=== PATIENT | female | born 1960 | race Caucasian/White ===

== ENCOUNTER 2016-11-18 19:47 | Inpatient (IN) | payer OTHER ==
[2016-11-18] MEDS ORDERED: IOPAMIDOL 370 (76%) 100 ML VIAL IV ONE (19:48)
[2016-11-18] MEDS ORDERED: LACTATED RINGERS 1,000 ML ONE (20:20)
[2016-11-18 20:32] LABS: ABSOLUTE NEUTROPHIL COUNT 7.4 K/mm3 (1.8-7.7); BASO % 0.3 % (0.2-1.0); EOS # 0.3 (0.0-0.5); EOS % 2.8 % (0.9-2.9); HEMATOCRIT 42.4 % (37.0-47.0); IMM NEUT # 0.1 K/mm3 (0-0.2); IMM NEUT% 0.7 % (0-1); LYMPH # 2.1 (1.0-4.8); LYMPH % 19.9 % (15-45); MEAN CELL VOLUME 91.8 fl (81.0-99.0); MEAN CORPUSCULAR HEMOGLOBIN 30.3 pg (27.0-31.0); MEAN PLATELET VOLUME 10.1 fl (7.4-10.4); MONO # 0.8 (0.0-0.8); MONO % 7.6 % (4-12); NEUT % 68.7 % (43-75); PLATELET COUNT 318 K/mm3 (130-400); RED CELL DISTRIBUTION WIDTH 12.6 % (11.5-14.5)
[2016-11-18] MEDS ORDERED: DEXAMETHASONE SOD PHOS 10 MG/1 ML VIAL ONE (20:35)
[2016-11-18] MEDS ORDERED: ALBUTEROL/IPRATROPIUM 2.5/0.5 MG 3 ML/EACH DOSE ONE (20:36)
[2016-11-18 20:46] LABS: SPECIFIC GRAVITY 1.025 (1.001-1.030); URINE BILIRUBIN NEGATIVE (NEGATIVE); URINE BLOOD NEGATIVE (NEGATIVE); URINE GLUCOSE (UA) NEGATIVE (NEGATIVE); URINE LEUKOCYTE ESTERASE NEGATIVE (NEGATIVE); URINE NITRITE NEGATIVE (NEGATIVE); URINE PROTEIN TRACE (NEGATIVE)
[2016-11-18 20:47] LABS: ALB/GLOB RATIO 1.3 (>1.0); ALBUMIN 4.1 gm/dL (3.5-5.7); CALCIUM 9.6 mg/dL (8.6-10.3)
[2016-11-18 20:48] LABS: URINE APPEARANCE CLEAR; URINE COLOR DARK YELLOW; URINE UROBILINOGEN 4 mg/dL (0-1 mg/dl)
[2016-11-18 20:56] LABS: TROPONIN I < 0.01 ng/ml (0.0-0.06)
[2016-11-18 20:59] LABS: CKMB ISOENZYME 2.7 ng/ml (0.6-6.3)
--- NOTE | 2016-11-18 21:22 | CT ---
Name: GIULIANA MUIR Exam: CT Angiogram of the chest with contrast Comparison: None Clinical History:Increasing lethargy and weakness. Recent diagnosis of URI Procedure: Helical CT using multidetector technique was applied to the chest during rapid intravenous administration of 80 cc Isovue-370. MIP reconstructions were obtained on the CT scanner. Automated dose reduction technique was used to minimize patient radiation dose. Findings: CT angiogram of the chest (contrast enhanced): Heart is nonenlarged. There is no pericardial effusion. Aorta is normal caliber and there is a normal 3 great vessel arrangement. Injection was made via the right. Limited views of the thyroid gland are normal. There is no suspicious axillary or mediastinal adenopathy. There is a small amount of hilar lymph tissue bilaterally. The large airways are clear. There is no pulmonary embolus. There is mild infiltrate within the lung bases bilaterally. The densest consolidation is in the middle lobe. There is no dominant mass, pleural effusion or pneumothorax. Multilevel degenerative disease of the thoracic spine is present. There is a partially imaged 5 cm duodenal diverticulum. Other structures below the diaphragm included on this exam are within normal limits. Impression: 1. No pulmonary embolus 2. Mild bibasilar pneumonia Note:The above report was uploaded to [facility]'s electronic medical records system at 2118 hours.
[2016-11-18] MEDS ORDERED: ALBUTEROL SULFATE 5MG/ML INHALANT 20 ML BOT ONE (21:38)
[2016-11-18] MEDS ORDERED: IPRATROPIUM BROMIDE 0.5 MG/2.5 ML DOSE ONE (21:38)
[2016-11-18] MEDS ORDERED: SODIUM CL FOR INHALATION 3 ML DOSE ONE (21:38)
[2016-11-19] MEDS ORDERED: ALBUTEROL NEB 2.5 MG/3 ML VIAL.NEB NEB PRN (00:21)
[2016-11-19] MEDS ORDERED: BLISTEX LIPSTICK 1 EACH TP PRN (00:36)
[2016-11-19] MEDS ORDERED: BISACODYL 10 MG SUP PR PRN (00:36)
[2016-11-19] MEDS ORDERED: BISACODYL 5 MG TABLET.EC PO PRN (00:36)
[2016-11-19] MEDS ORDERED: MAGNESIUM HYDROXIDE 30 ML UDCUP PO PRN (00:36)
[2016-11-19] MEDS ORDERED: MENTHOL/CETYLPYRD 1 EACH LOZENGE PO PRN (00:36)
[2016-11-19] MEDS ORDERED: SODIUM CHLORIDE 0.9% 100 ML IV PRN (00:36)
[2016-11-19] MEDS ORDERED: GUAIFENESIN/CODEINE 100/10 MG (5 ML UDCUP) PO PRN (00:44)
[2016-11-19] MEDS ORDERED: NICOTINE POLACRILEX 2 MG LOZENGE PO PRN (00:55)
[2016-11-19] MEDS ORDERED: NICOTINE 14 MG PATCH 1 EACH TD PRN (00:55)
[2016-11-19 01:16] VITALS: BMI 38.9
--- NOTE | 2016-11-19 07:31 | HP ---
GIULIANA DUPONT [id number] : 12/06/1950 DATE OF ADMISSION: November 18, 2016 IDENTIFICATION: Ms. Doan is a 55-year-old followed by Dr. Areli Godoy. CHIEF COMPLAINT: Dyspnea and cough. HISTORY OF PRESENT ILLNESS: Patient reports a two-week history of respiratory symptoms getting worse with cough, dyspnea, and congestion. She went to urgent care on November 17, 2016, where she was given nebulizer treatment and prescribed levofloxacin as well as Brio Ellipta and albuterol. She was given an intramuscular injection of ceftriaxone. On November 18, 2016, she used all these medications but symptoms seemed to be getting worse so late in the evening she came to the [facility] Emergency Room. She was again treated with nebulizer treatment, given a dose of intravenous solumedrol. She had CT scan demonstrating bilateral pneumonia. This was not considered a treatment failure as she had only just started on antibiotics, but she was falling asleep and becoming hypoxemic in the emergency department and stated that her CPAP machine at home was not working properly, and she was therefore referred to the hospitalist service rather than discharged. REVIEW OF SYSTEMS: HEENT: She does report headache and earache. RESPIRATORY: Cough and dyspnea, and yellow sputum. CARDIAC: No chest pain or palpitations. GASTROINTESTINAL: No nausea, vomiting, or dyspepsia. No diarrhea, constipation, hematochezia or melena. GENITOURINARY: No dysuria or urgency. MUSCULOSKELETAL: Chronic low back pain and left knee pain. CONSTITUTIONAL: She has had chills. No documented fever. PAST MEDICAL HISTORY: 1. Asthma probably progressing to chronic obstructive pulmonary disease. 2. Obstructive sleep apnea with CPAP at home, although she has not used the CPAP for a few weeks. 3. Obesity. 4. Chronic low back pain. 5. Attention deficit disorder. 6. Anxiety and depression. 7. Left knee pain secondary to an injury. PAST SURGICAL HISTORY: 1. section. 2. Appendectomy. 3. Hysterectomy. 4. Low back surgery. 5. Tonsillectomy. MEDICATIONS: She was on no medications prior to November 17, 2016, when she was prescribed: 1. Levofloxacin 750 mg orally daily. 2. Brio Ellipta 200/25 one inhalation daily. 3. Albuterol metered dose inhaler two puffs every four hours as needed. 4. Guaifenesin with codeine 10 mL orally every six hours as needed. ALLERGIES: REPORTED TO PENICILLIN, UNKNOWN REACTION. HABITS: She is currently smoking a quarter pack of clove cigarettes per day. Has at least a 38 year smoking history. Rarely uses alcohol. Denies other drugs. SOCIAL HISTORY: She is unemployed, single but does have a significant other, living in [place]. She is applying for disability. FAMILY HISTORY: Father had coronary artery disease. PHYSICAL EXAMINATION: GENERAL: This is a sleepy, disheveled 55-year-old. When awoken she does not appear in any acute distress. VITAL SIGNS: Temperature 98.7 degrees Fahrenheit, pulse 91, blood pressure 140/69, respiratory rate 20, oxygen saturation 95% on room air but 83% on room air when sleeping. She is currently on 2 liters of oxygen. HEENT: Atraumatic. Pupils are equal, round and reactive. Extraocular muscles are intact. Oropharynx is moist. Dentition in moderate to poor condition. NECK: No adenopathy. CHEST: Inspiratory and expiratory wheezing with mild rhonchi at the bases bilaterally. She does have an occasional moist sounding cough. HEART: Is regular, no murmur. ABDOMEN: Obese, soft, nontender, normal bowel tones, no organomegaly. EXTREMITIES: Decreased but palpable dorsalis pedis pulses. Trace edema in the ankles. No cyanosis or clubbing. NEUROLOGIC: Alert and oriented, no focal deficits. LABORATORY DATA: White blood cell count is 10.7, remainder of the CBC is entirely normal. D-dimer was elevated at 0.63, lactate 1.2. Chemistry profile was entirely normal except for a glucose of 160. Liver enzymes are normal. Cardiac enzymes are normal. Urinalysis, specific gravity 1.025, trace protein, positive urobilinogen, otherwise negative. Influenza A and B negative. RADIOLOGY: CT scan of the chest, no pulmonary embolus, mild bibasilar pneumonia. ELECTROCARDIOGRAM: Sinus rhythm with nonspecific ST-T wave flattening. ASSESSMENT: Ms. Franki Mcnulty is a 55-year-old with a history of asthma likely chronic obstructive pulmonary disease and nicotine dependence who presents with bilateral pneumonia, presumed to be bacterial, and hypoxemia when she falls asleep due to obstructive sleep apnea and obesity hypoventilation syndrome with chronic respiratory failure. PLAN: 1. Admit to medical/surgical floor. 2. Treatment for bacterial pneumonia with intravenous levofloxacin. 3. Supplemental oxygen as necessary and nebulizer therapies. 4. She was given dexamethasone in the emergency department. We will continue with daily oral prednisone at 40 mg a day. 5. She is encouraged to obtain her CPAP from home and continue to use it for her chronic respiratory failure in the hospital. 6. She declines nicotine replacement. She is encouraged to quit using nicotine products. 7. Venous thromboembolism prophylaxis with enoxaparin. 8. FULL CODE status. cc: Areli Godoy M.D.
--- NOTE | 2016-11-19 07:53 | RAD ---
CHEST 2 VIEWS HISTORY: Cough x3 weeks with fever. Frontal and lateral chest radiographs dated 11/18/2016. COMPARISON: None. FINDINGS: FOCAL AIRSPACE OPACITY: Right middle lobe infiltrate. PLEURAL EFFUSION: None. CARDIOMEDIASTINAL SILHOUETTE: Nonenlarged. PNEUMOTHORAX: None identified. OSSEOUS STRUCTURES: Minor thoracic disc degeneration. IMPRESSION: Consolidation compatible with right middle lobe pneumonia, recommend radiographic follow-up until clearance of airspace abnormality to ensure resolution.
[2016-11-19] MEDS: ALBUTEROL/IPRATROPIUM 2.5/0.5 MG 3 ML/EACH DOSE NEB SCH ×4 (08:51→20:03)
[2016-11-19] MEDS ORDERED: PNEUMOCOCCAL 23-VAL P-SAC VAC 0.5 ML VIAL IM V ONE (09:00)
[2016-11-19] MEDS ORDERED: PUMP TUBING ONE (09:13)
[2016-11-19] MEDS: LEVOFLOXACIN 750 MG/D5W 150 ML 750 MG in Premix (D5W) 150 ml Bag 1 EACH IV SCH (09:21)
[2016-11-19] MEDS: PREDNISONE 20 MG TABLET PO SCH (09:23)
[2016-11-19] MEDS: DOCUSATE SODIUM 100 MG CAPSULE PO SCH ×2 (09:23→20:50)
[2016-11-19] MEDS: ENOXAPARIN SODIUM 40 MG/0.4 ML SYRINGE SUB-Q SCH (09:23)
[2016-11-19] MEDS: ACETAMINOPHEN 325 MG TABLET PO PRN (14:00)
[2016-11-19] MEDS: NICOTINE 7 MG PATCH 1 EACH TD SCH (15:09)
[2016-11-20] MEDS: LEVOFLOXACIN 750 MG/D5W 150 ML 750 MG in Premix (D5W) 150 ml Bag 1 EACH IV SCH (08:22)
[2016-11-20] MEDS: ENOXAPARIN SODIUM 40 MG/0.4 ML SYRINGE SUB-Q SCH (08:23)
[2016-11-20] MEDS: DOCUSATE SODIUM 100 MG CAPSULE PO SCH ×2 (08:23→21:01)
[2016-11-20] MEDS: PREDNISONE 20 MG TABLET PO SCH (08:23)
[2016-11-20] MEDS: ALBUTEROL/IPRATROPIUM 2.5/0.5 MG 3 ML/EACH DOSE NEB SCH ×4 (08:50→20:06)
[2016-11-20] MEDS ORDERED: ALPRAZOLAM 0.25 MG TABLET PO ONE (09:34)
[2016-11-20] MEDS ORDERED: ALPRAZOLAM 0.25 MG TABLET PO PRN (09:34)
[2016-11-20 09:51] LABS: ABSOLUTE NEUTROPHIL COUNT 11.2 K/mm3 (1.8-7.7); BASO % 0.2 % (0.2-1.0); EOS % 0.2 % (0.9-2.9); HEMATOCRIT 38.7 % (37.0-47.0); HEMOGLOBIN 12.5 gm/l (12.0-16.0); IMM NEUT # 0.2 K/mm3 (0-0.2); IMM NEUT% 1.4 % (0-1); LYMPH # 3.6 (1.0-4.8); LYMPH % 22.6 % (15-45); MEAN CELL VOLUME 92.8 fl (81.0-99.0); MEAN CORPUSCULAR HGB CONC 32.3 g/dl (33.0-37.0); MEAN PLATELET VOLUME 9.8 fl (7.4-10.4); MONO # 0.9 (0.0-0.8); MONO % 5.3 % (4-12); NEUT % 70.3 % (43-75); PLATELET COUNT 304 K/mm3 (130-400); RED CELL DISTRIBUTION WIDTH 12.7 % (11.5-14.5)
--- NOTE | 2016-11-20 09:55 | PDOC43 ---
- Subjective Chief Complaint: Dyspnea and cough Feels breathing is worse today, cough is non-productive, quite anxious. Has been on antihistamines, decongestants and alprazolam routinely in the past. - Objective Vital Signs Temperature 98.1 F 11/20/16 03:09 Pulse Rate 108 11/20/16 03:09 Respiratory Rate 22 11/20/16 03:09 Blood Pressure 152/81 11/20/16 03:09 O2 Saturation by Pulse Oximetry 93 11/20/16 03:09 Oxygen Delivery Method Room Air Oxygen Flow Rate 0 Intake and Output 11/19/16 11/20/16 11/21/16 06:59 06:59 06:59 Intake Total 1355 3028 Output Total 450 775 Balance 905 2253 General: Alert, Oriented x3, Cooperative, Moderate Distress HEENT: Mucous membr. moist/pink Lungs: Diminished at Bases, Other (exp wheezes throughout) Cardiovascular: Regular Rate and Rhythm Abdomen: Soft, Normal Bowel Sounds, No Tenderness, No Masses Extremities: Edema (trace), Normal Pulses Skin: Normal Color Neurological: Normal Speech Psych/Mental Status: Anxious Current Medications: Current meds reviewed in EMR. - Problems: Assessment/Plan (1) Pneumonia Qualifiers: Pneumonia type: due to unspecified organism Laterality: bilateral Lung location: lower lobe of lung Qualifier Code: (J18.9) Pneumonia, unspecified organism Status: Acute Assessment/Plan: Presumed bacterial pneumonia present on admit. Continue treatment with levofloxacin, nebs. Not requiring O2 (2) Hypoxemia Status: Chronic Assessment/Plan: Has chronic respiratory failure and hypoxemia when sleeping due to Obstructive sleep apnea and obesity hypoventilation syndrome. Had acute hypoxemia in ER but that has resolved, no O2 requirement when awake. (3) ADD (attention deficit disorder) Status: Chronic Assessment/Plan: Not currently on any chronic medical therapy and condition contributes to her failure to follow up appropriately with medical providers and remain on treatment. (4) Anxiety and depression Status: Chronic Assessment/Plan: Not currently on any chronic medical therapy and anxiety is contributing to her acute distress. Alprazolam ordered. (5) COPD (chronic obstructive pulmonary disease) Qualifiers: COPD type: COPD with acute lower respiratory infection Qualifier Code: (J44.0) Chronic obstructive pulmonary disease with acute lower respiratory infection Status: Chronic Assessment/Plan: Presumed progression of chronic asthma to COPD. Will need chronic inhaled steroid/bronchodilator. Started on moderate dose oral prednisone, 40 mg daily, on admit. (6) Nicotine dependence Qualifiers: Nicotine product type: cigarettes Substance use status: in withdrawal Qualifier Code: (F17.213) Nicotine dependence, cigarettes, with withdrawal Status: Chronic Assessment/Plan: Initially declined but now has accepted nicotine replacement with patch. Cessation counseling. (7) [place] (obstructive sleep apnea) Status: Chronic Assessment/Plan: With chronic respiratory failure when sleeping. Continue to use hospital CPAP/ BiPAP due to condition of her home CPAP. (8) Obesity (BMI 30-39.9) Status: Chronic Assessment/Plan: Complicates care as obesity contributes to [place], hypoventilation syndrome and restrictive lung disease VTE Prophylaxis: Enoxaparin Disposition: Anticipate discharge home when stable
[2016-11-20] MEDS: LORATADINE 10 MG TABLET PO SCH (10:02)
[2016-11-20] MEDS: PSEUDOEPHEDRINE HCL 30 MG TABLET PO SCH ×4 (10:03→21:01)
[2016-11-20 10:09] LABS: CALCIUM 9.2 mg/dL (8.6-10.3)
[2016-11-20] MEDS ORDERED: SODIUM CHLORIDE 0.9% FLUSH 10 ML ONE (10:56)
[2016-11-20] MEDS ORDERED: IV START KIT ONE (10:56)
[2016-11-20] MEDS: NICOTINE 7 MG PATCH 1 EACH TD SCH (14:24)
[2016-11-20] MEDS: ACETAMINOPHEN 325 MG TABLET PO PRN (15:49)
[2016-11-21] MEDS: PSEUDOEPHEDRINE HCL 30 MG TABLET PO SCH ×2 (04:48→09:22)
[2016-11-21] MEDS: ALBUTEROL/IPRATROPIUM 2.5/0.5 MG 3 ML/EACH DOSE NEB SCH (08:09)
[2016-11-21 08:33] VITALS: BP 146/87
[2016-11-21] MEDS: LEVOFLOXACIN 750 MG/D5W 150 ML 750 MG in Premix (D5W) 150 ml Bag 1 EACH IV SCH (08:35)
[2016-11-21] MEDS: PREDNISONE 20 MG TABLET PO SCH (08:52)
[2016-11-21] MEDS: ENOXAPARIN SODIUM 40 MG/0.4 ML SYRINGE SUB-Q SCH (08:53)
--- NOTE | 2016-11-21 09:00 | PDOC5 ---
ADMIT DATE: 11/18/16 DISCHARGE DATE: 11/21/16 ADMISSION DIAGNOSES: bilateral bacterial pneumonia PROCEDURES PERFORMED THIS HOSPITALIZATION: Chest CTA--bilateral PNA, no PE CONSULTATIONS: Respiratory therapy HOSPITAL COURSE: This is a 55 year old with asthma progressing to COPD who presented after two week of lower respiratory symptoms. She had been started on levofloxacin and inhalers just the day before admission. She was becomming hypoxemic when she fell asleep and required CPAP. She was admitted and treated with IV levofloxacin, O2, Nebulizer therapy, oral prednisone and CPAP. She had gradual improvement and on 11/21/16 is no longer requiring O2. - Exam Vital Signs Temperature 98.4 F 11/21/16 08:32 Pulse Rate 110 11/21/16 08:32 Respiratory Rate 20 11/21/16 08:32 Blood Pressure 146/87 11/21/16 08:32 O2 Saturation by Pulse Oximetry 93 11/21/16 08:32 Oxygen Delivery Method Room Air Oxygen Flow Rate 0 General: Alert, Oriented x3, Cooperative, No Acute Distress HEENT: Mucous membr. moist/pink Lungs: Other (exp wheezes bilateral but decreasing) Cardiovascular: Regular Rate and Rhythm Abdomen: Soft, Normal Bowel Sounds, No Tenderness, No Masses Extremities: Normal Pulses, No Edema Skin: Normal Color Neurological: Normal Speech Psych/Mental Status: Normal Mood - Results Laboratory 11/20/16 09:35 11/20/16 09:35 11/20/16 09:35 RBC 4.17 L MCHC 32.3 L % Immature Granulocyt 1.4 H - Problems:Assessment/Plan (1) Pneumonia Qualifiers: Pneumonia type: due to unspecified organism Laterality: bilateral Lung location: lower lobe of lung Qualifier Code: (J18.9) Pneumonia, unspecified organism Status: Acute Assessment/Plan: Presumed bacterial pneumonia present on admit. Continue treatment with levofloxacin. Not requiring O2, discharge (2) Hypoxemia Status: Chronic Assessment/Plan: Has chronic respiratory failure and hypoxemia when sleeping due to Obstructive sleep apnea and obesity hypoventilation syndrome. Had acute hypoxemia in ER but that has resolved, no O2 requirement when awake. Needs to use home CPAP when sleeping. (3) ADD (attention deficit disorder) Status: Chronic Assessment/Plan: Not currently on any chronic medical therapy and condition contributes to her failure to follow up appropriately with medical providers and remain on treatment. (4) Anxiety and depression Status: Chronic Assessment/Plan: Not currently on any chronic medical therapy and anxiety is contributing to her acute distress. Alprazolam ordered. (5) COPD (chronic obstructive pulmonary disease) Qualifiers: COPD type: COPD with acute lower respiratory infection Qualifier Code: (J44.0) Chronic obstructive pulmonary disease with acute lower respiratory infection Status: Chronic Assessment/Plan: Presumed progression of chronic asthma to COPD. Will need chronic inhaled steroid/bronchodilator. Started on moderate dose oral prednisone, 40 mg daily, on admit. (6) Nicotine dependence Qualifiers: Nicotine product type: cigarettes Substance use status: in withdrawal Qualifier Code: (F17.213) Nicotine dependence, cigarettes, with withdrawal Status: Chronic Assessment/Plan: Initially declined but now has accepted nicotine replacement with patch. Cessation counseling. (7) [place] (obstructive sleep apnea) Status: Chronic Assessment/Plan: With chronic respiratory failure when sleeping. Needs to clean and use home CPAP. (8) Obesity (BMI 30-39.9) Status: Chronic Assessment/Plan: Complicates care as obesity contributes to [place], hypoventilation syndrome and restrictive lung disease - Disposition: Disposition: discharge home - Discharge Plan Forms: Discharge Instructions Prescriptions: Pseudoephedrine HCl [SUDAFED 30 MG TABLET (SHF)] 60 mg PO Q6HR PRN #20 tablet PRN Reason: Congestion Loratadine [CLARITIN 10 MG TABLET (SHF)] 10 mg PO Q24H #30 tablet Prednisone [PREDNISONE 20 MG (SHF)] 40 mg PO QAM 5 Days Follow-Up: Areli Godoy MD [Primary Care Provider] - 11/26/16 2:30 pm (PHONE ) Condition: Fair Disposition: Home
[2016-11-21] MEDS: DOCUSATE SODIUM 100 MG CAPSULE PO SCH (09:20)
[2016-11-21] MEDS: LORATADINE 10 MG TABLET PO SCH (09:22)
== END 2016-11-21 11:06 | disposition home or self-care (01) | DRG 190 ==
LOC: ED 19:47 → MS 23:04
PROVIDERS: ADMIT Family Medicine; ATTEND Family Medicine
DX: J44.0 Chronic obstructive pulmonary disease with (acute) lower respiratory infection (principal); J15.9 Unspecified bacterial pneumonia; J96.10 Chronic respiratory failure, unspecified whether with hypoxia or hypercapnia; J45.909 Unspecified asthma, uncomplicated; F17.210 Nicotine dependence, cigarettes, uncomplicated; F41.8 Other specified anxiety disorders; G47.33 Obstructive sleep apnea (adult) (pediatric); E66.9 Obesity, unspecified; Z68.30 Body mass index [BMI] 30.0-30.9, adult